=== PATIENT | male | born 1965 | race Caucasian/White ===

== ENCOUNTER 2016-11-08 03:45 | Inpatient (IN) | payer BC ==
[~2016-11-08] VITALS: Ht 180.3 cm; Wt 124.7 kg
[2016-11-08] MEDS ORDERED: LISINOPRIL30 MG PO (05:06)
[2016-11-08 10:51] LABS: BUN/CREATININE RATIO 21 (0-10)
[2016-11-09] MEDS ORDERED: AMIODARONE HCL400 MG PO (12:54)
[2016-11-09] MEDS ORDERED: ELIQUIS5 MG PO (12:54)
[2016-11-09] MEDS ORDERED: CORDARONE 200M200 MG PO (12:54)
[2016-11-09] MEDS ORDERED: LOPRESSOR50 MG PO (12:56)
[2016-11-09] MEDS ORDERED: ASPIRIN81 MG PO (12:56)
[2017-02-13] MEDS ORDERED: OMEPRAZOLE20 MG PO (08:00)
[2017-02-14] MEDS ORDERED: LEVAQUIN500 MG PO (07:58)
[2017-02-14] MEDS ORDERED: TYLENOL W/CODEIN1 E1 PO (07:59)
[2017-02-14] MEDS ORDERED: AMIODARONE HCL200 MG PO (09:11)
== END 2016-11-09 23:03 | disposition home or self-care (01) | DRG 287 ==
LOC: CATH 03:45 → CCU 03:49
PROVIDERS: Physician Assistant; ADMIT Internal Medicine Cardiovascular Disease
PROC: B2111ZZ Fluoroscopy of Multiple Coronary Arteries using Low Osmolar Contrast (ICD-10-PCS; principal; 2016-11-08)
PROC: B2151ZZ Fluoroscopy of Left Heart using Low Osmolar Contrast (ICD-10-PCS; principal; 2016-11-08)
PROC: 4A023N7 Measurement of Cardiac Sampling and Pressure, Left Heart, Percutaneous Approach (ICD-10-PCS; principal; 2016-11-08)
PROC: 5A2204Z Restoration of Cardiac Rhythm, Single (ICD-10-PCS; 2016-11-09)
DX: I48.91 Unspecified atrial fibrillation (principal); I42.1 Obstructive hypertrophic cardiomyopathy; R55 Syncope and collapse; I10 Essential (primary) hypertension; K21.9 Gastro-esophageal reflux disease without esophagitis; E66.9 Obesity, unspecified; G47.33 Obstructive sleep apnea (adult) (pediatric); Z79.899 Other long term (current) drug therapy; Z88.1 Allergy status to other antibiotic agents; Z68.38 Body mass index [BMI] 38.0-38.9, adult
CPT/HCPCS: ECHO; 36415; 80053; 82550; 82553; 82803; 83735; 84439; 84443; 84484; 85347; 93005; 93306; 93312; 93320; C1769; J0583; J1200; J1644; J1650; J2250; J3010; J7030; J7040; J7050; Q9963; Q9965

== ENCOUNTER 2020-12-21 12:23 | Emergency (ER) | payer BC ==
[~2020-12-21 12:23] MED LIST: AMIODARONE HCL200 MG PO; AMIODARONE HCL400 MG PO; ASPIRIN81 MG PO; CLINDAMYCIN HC300 MG PO; CORDARONE 200M200 MG PO; ELIQUIS5 MG PO; LEVAQUIN500 MG PO; LISINOPRIL30 MG PO; LISINOPRIL40 MG PO; LOPRESSOR50 MG PO; OMEPRAZOLE20 M1 PO; OMEPRAZOLE20 MG PO; TYLENOL W/CODEIN1 E1 PO
[2020-12-21 13:37] LABS: HEMOGLOBIN 13.8 gm/dl (14.0-17.5); RED BLOOD COUNT 4.43 M/UL (4.20-5.50); WHITE BLOOD COUNT 8.2 K/UL (4.5-11.0)
[2020-12-21 14:06] LABS: BUN/CREATININE RATIO 15 (0-10)
== END 2020-12-21 17:09 | disposition home or self-care (01) ==
LOC: ER1 12:23
PROVIDERS: Student in an Organized Health Care Education/Training Program
DX: R10.13 Epigastric pain (principal); I48.91 Unspecified atrial fibrillation; I10 Essential (primary) hypertension; Z95.0 Presence of cardiac pacemaker
CPT/HCPCS: 71045; 80053; 82550; 82553; 83874; 84484; 85025; 93005; 99284

== ENCOUNTER 2021-05-10 09:48 | Emergency (ER) | payer BC ==
[~2021-05-10] VITALS: Ht 180.3 cm; Wt 142.0 kg
[~2021-05-10 09:48] MED LIST changes: -AMIODARONE HCL200 MG PO; -OMEPRAZOLE20 M1 PO
[2021-05-13] MEDS ORDERED: ELIQUIS5 MG PO (01:47)
[2021-05-13] MEDS ORDERED: OMEPRAZOLE20 M1 PO (01:47)
[2021-05-13] MEDS ORDERED: AMIODARONE HCL200 MG PO (09:11)
== END 2021-05-10 13:17 | disposition home or self-care (01) ==
LOC: ER1 09:48
DX: U07.1 COVID-19 (principal); J12.82 Pneumonia due to coronavirus disease 2019; Z23 Encounter for immunization; I10 Essential (primary) hypertension; Z95.0 Presence of cardiac pacemaker
CPT/HCPCS: 71045; 99283; M0245

== ENCOUNTER 2021-05-13 11:38 | Inpatient (IN) | payer BC ==
[~2021-05-13] VITALS: Ht 180.3 cm; Wt 140.6 kg
[~2021-05-13 11:38] MED LIST changes: +AMIODARONE HCL200 MG PO; +OMEPRAZOLE20 M1 PO
[2021-05-13 13:04] LABS: HEMOGLOBIN 15.6 gm/dl (14.0-17.5); RED BLOOD COUNT 5.09 M/UL (4.20-5.50)
[2021-05-13 13:32] LABS: BUN/CREATININE RATIO 17 (0-10)
[2021-05-13] MEDS ORDERED: DRISDOL1250 MCG PO (18:35)
[2021-05-13] MEDS ORDERED: HYDROCHLOROTH12.5 MG PO (18:36)
[2021-05-13] MEDS ORDERED: LEVOTHYROXINE25 MCG PO (18:36)
[2021-05-13] MEDS ORDERED: DILTIAZEM 24HR180 M1 PO (18:36)
[2021-05-14 07:57] LABS: RED BLOOD COUNT 4.68 M/UL (4.20-5.50)
[2021-05-14 07:58] LABS: HEMOGLOBIN 13.6 gm/dl (14.0-17.5); WHITE BLOOD COUNT 5.1 K/UL (4.5-11.0)
[2021-05-14 08:11] LABS: BUN/CREATININE RATIO 19 (0-10)
[2021-05-15] MEDS ORDERED: DOXYCYCLINE MO100 MG PO (11:13)
[2021-05-15] MEDS ORDERED: DEXAMETHASONE6 MG PO (11:13)
== END 2021-05-15 14:15 | disposition home or self-care (01) | DRG 177 ==
LOC: ER1 11:38 → CDU 16:09 → MED SURG 4 18:32
PROVIDERS: Physician Assistant; ADMIT Emergency Medicine
PROC: 8E0ZXY6 Isolation (ICD-10-PCS; principal; 2021-05-13)
PROC: 3E0333Z Introduction of Anti-inflammatory into Peripheral Vein, Percutaneous Approach (ICD-10-PCS; 2021-05-13)
DX: U07.1 COVID-19 (principal); J12.82 Pneumonia due to coronavirus disease 2019; J96.01 Acute respiratory failure with hypoxia; I21.A1 Myocardial infarction type 2; I48.20 Chronic atrial fibrillation, unspecified; I42.1 Obstructive hypertrophic cardiomyopathy; M62.82 Rhabdomyolysis; Z68.41 Body mass index [BMI] 40.0-44.9, adult; E78.5 Hyperlipidemia, unspecified; I10 Essential (primary) hypertension; E66.01 Morbid (severe) obesity due to excess calories; K21.9 Gastro-esophageal reflux disease without esophagitis; E03.9 Hypothyroidism, unspecified; Z79.01 Long term (current) use of anticoagulants; Z95.810 Presence of automatic (implantable) cardiac defibrillator; Z83.3 Family history of diabetes mellitus; Z88.0 Allergy status to penicillin; Z79.82 Long term (current) use of aspirin; Z79.899 Other long term (current) drug therapy; Z79.52 Long term (current) use of systemic steroids; Z23 Encounter for immunization
CPT/HCPCS: 36415; 36600; 71045; 80053; 80061; 82550; 82553; 82728; 82803; 83605; 83874; 83880; 84484; 85025; 85027; 85379; 86140; 93005; 94760; 96372; 99285; J0696; J1100; J1650; J1956; U0002

== ENCOUNTER → 2021-05-21 | Outpatient (CLI) | payer BC ==
[~2021-05-21] MED LIST changes: +DEXAMETHASONE6 MG PO; +DILTIAZEM 24HR180 M1 PO; +DOXYCYCLINE MO100 MG PO; +DRISDOL1250 MCG PO; +HYDROCHLOROTH12.5 MG PO; +LEVOTHYROXINE25 MCG PO
== END ==
LOC: RAD 14:51
DX: Z09 Encounter for follow-up examination after completed treatment for conditions other than malignant neoplasm (principal); Z86.16 Personal history of COVID-19; R06.02 Shortness of breath
CPT/HCPCS: 71046

== ENCOUNTER → 2021-07-08 | Outpatient (CLI) | payer BC | LOC: HEART 5 09:07 | DX: R06.02 Shortness of breath (principal); Z79.899 Other long term (current) drug therapy | CPT/HCPCS: 94060; 94729 ==